=== PATIENT | female | born 1975 | race Caucasian/White ===

== ENCOUNTER 2017-10-01 16:36 | Emergency (ER) | payer MEDICAID ==
[~2017-10-01] VITALS: Ht 165.1 cm; Wt 108.9 kg
[2017-10-01 16:46] VITALS: BP 155/93
[2017-10-01] MEDS ORDERED: ALBUTEROL/IPRATROPIUM 2.5MG/0.5MG, 3 ML NPPB ONE (18:00)
[2017-10-01] MEDS ORDERED: ALBUTEROL/IPRATROPIUM 2.5MG/0.5MG, 3 ML ONE (18:01)
[2017-10-01] MEDS ORDERED: ALBU90AE INH (19:03)
== END 2017-10-01 20:01 | disposition home or self-care (01) ==
LOC: ED 18:26
DX: J45.31 Mild persistent asthma with (acute) exacerbation (principal); Z90.49 Acquired absence of other specified parts of digestive tract
CPT/HCPCS: 71020; 93005; 94640; 99284; J7512; J7620

== ENCOUNTER 2017-10-08 09:57 | Emergency (ER) | payer MEDICAID ==
[~2017-10-08] VITALS: Ht 165.1 cm; Wt 108.4 kg
[~2017-10-08 09:57] MED LIST: ALBU90AE INH
[2017-10-08 10:03] VITALS: BP 138/83
[2017-10-08] MEDS ORDERED: MOME13HF2 INH (10:40)
== END 2017-10-08 11:33 | disposition home or self-care (01) ==
LOC: ED 11:31
DX: J45.30 Mild persistent asthma, uncomplicated (principal); J20.9 Acute bronchitis, unspecified; Z90.49 Acquired absence of other specified parts of digestive tract
CPT/HCPCS: 71046; 99284

== ENCOUNTER 2018-08-17 10:45 | Emergency (ER) | payer MEDICAID ==
[~2018-08-17] VITALS: Ht 160 cm; Wt 107.3 kg
[~2018-08-17 10:45] MED LIST changes: +MOME13HF2 INH
[2018-08-17] MEDS ORDERED: ASPIRIN 81 MG TABLET CHEW PO ONE (11:30)
[2018-08-17 11:32] LABS: BASOPHILS # (AUTO) 0.04 x10^3/uL (0-0.1); BASOPHILS % (AUTO) 0 % (0-1); EOSINOPHILS % (AUTO) 2 % (1-7); LYMPHOCYTES # (AUTO) 1.89 x10^3/uL (1-3.4); LYMPHOCYTES % (AUTO) 22 % (22-44); MD NO; MEAN CORPUSCULAR HEMOGLOBIN 25.7 pg (27.0-34.8); MEAN CORPUSCULAR HGB CONC 32.6 g/dL (32.4-35.8); MEAN CORPUSCULAR VOLUME 78.8 fL (80-100); MEAN PLATELET VOLUME 7.4 fL (7.4-10.4); MONOCYTES # (AUTO) 0.71 x10^3/uL (0.2-0.8); MONOCYTES % (AUTO) 8 % (2-9); NEUTROPHILS # (AUTO) 5.97 x10^3/uL (1.8-6.8); NEUTROPHILS % (AUTO) 68 % (42-75); PLATELET COUNT 411 x10^3/uL (130-400); RED BLOOD COUNT 4.83 x10^6/uL (3.82-5.3); RED CELL DISTRIBUTION WIDTH 14.5 % (9.6-15.2)
[2018-08-17] MEDS ORDERED: ASPIRIN 81 MG TABLET CHEW ONE (11:34)
[2018-08-17 11:40] LABS: ALANINE AMINOTRANSFERASE 29 U/L (12-78); ALBUMIN 3.4 g/dL (3.4-5.0); ANION GAP 6 mmol/L (5-15); CALCIUM 7.9 mg/dL (8.5-10.1); CHLORIDE 108 mmol/L (98-107)
[2018-08-17 11:44] LABS: ALKALINE PHOSPHATASE 91 U/L (45-117); BILIRUBIN,TOTAL 0.3 mg/dL (0.2-1.0); TOTAL PROTEIN 8.1 g/dL (6.4-8.2); TROPONIN I < 0.015 ng/mL (0.000-0.045)
[2018-08-17 12:05] VITALS: BP 132/75
== END 2018-08-17 12:11 | disposition home or self-care (01) ==
LOC: ED 11:49
DX: B30.9 Viral conjunctivitis, unspecified (principal); R07.89 Other chest pain
CPT/HCPCS: 36415; 71045; 80053; 84484; 85025; 93005; 99285

== ENCOUNTER 2019-10-08 10:59 | Emergency (ER) | payer MEDICAID ==
[~2019-10-08] VITALS: Ht 162.6 cm; Wt 85.8 kg
[2019-10-08 11:08] VITALS: BP 137/80
[2019-10-08] MEDS ORDERED: DEXAMETHASONE 4 MG TABLET ONE (11:34)
[2019-10-08] MEDS ORDERED: DEXAMETHASONE 4 MG TABLET PO ONE (12:00)
== END 2019-10-08 11:51 | disposition home or self-care (01) ==
LOC: ED 11:45
DX: J00 Acute nasopharyngitis [common cold] (principal); B97.89 Other viral agents as the cause of diseases classified elsewhere; J45.909 Unspecified asthma, uncomplicated; Z90.49 Acquired absence of other specified parts of digestive tract
CPT/HCPCS: 71046; 99283